=== PATIENT | male | born 1955 | race Caucasian/White ===

== ENCOUNTER 2024-08-14 13:24 | Emergency (ER) | payer MEDICARE, MEDICAID | END 2024-08-14 15:18 | disposition home or self-care (01) | LOC: MW.ED 13:24 | DX: M79.89 Other specified soft tissue disorders (principal); I10 Essential (primary) hypertension; E03.9 Hypothyroidism, unspecified; Z88.0 Allergy status to penicillin; Z79.899 Other long term (current) drug therapy; Z79.890 Hormone replacement therapy | CPT/HCPCS: 93971-26-RT; 93971-RT; 99282; 99283 ==

== ENCOUNTER 2024-11-04 20:01 | Emergency (ER) | payer MEDICARE, MEDICAID ==
[2024-11-04 20:41] LABS: BASOPHILS ABSOLUTE AUTO 0.05 K/uL (0.00-0.20); BASOPHILS PERCENT AUTO 0.8 % (0.0-1.0); EOSINOPHILS ABSOLUTE AUTO 0.11 K/uL (0.00-0.45); EOSINOPHILS PERCENT AUTO 1.8 % (0.0-6.0); IMMATURE GRAN ABSOLUTE AUTO 0.03 K/uL (0.00-0.05); IMMATURE GRAN PERCENT AUTO 0.5 % (0.0-0.4); LYMPHOCYTES ABSOLUTE AUTO 1.51 K/uL (1.00-4.80); LYMPHOCYTES PERCENT AUTO 24.0 % (24.0-44.0); MEAN PLATELET VOLUME 10.4 fL (9.4-12.4); MONOCYTES ABSOLUTE AUTO 0.55 K/uL (0.00-0.80); MONOCYTES PERCENT AUTO 8.8 % (0.0-8.0); NEUTROPHILS ABSOLUTE AUTO 4.03 K/uL (1.80-7.70); NEUTROPHILS PERCENT AUTO 64.1 % (41.0-71.0); NRBC ABSOLUTE 0.00 K/uL (0.00-0.02); NRBC PERCENT 0.0 /100WBC (0.0-0.2); PLATELET COUNT,PLT 181 K/uL (150-400); RED BLOOD CELL COUNT 4.42 M/uL (4.52-5.90); WHITE BLOOD CELL COUNT,WBC 6.28 K/uL (3.9-11.3)
[2024-11-04 20:56] LABS: A/G RATIO 1.1 (0.9-1.6); ALANINE AMINOTRANSFERASE,ALT 18.0 IU/L (14-63); ASPARTATE AMNIOTRANSFERASE,AST 25.0 IU/L (15-37); BILIRUBIN TOTAL 0.5 mg/dL (0.2-1.0); BLOOD UREA NITROGEN,BUN 99.0 mg/dL (7.0-18.0); CARBON DIOXIDE,CO2 17.2 mmol/L (21.0-32.0); CHLORIDE,CL 101.0 mmol/L (98-107); CREATININE 3.8 mg/dL (0.8-1.3); EST CRCL DRUG DOSING (CG) 20.44 mL/min; ESTIMATED GFR 16.0 mL/min (>60); GLUCOSE RANDOM 190.0 mg/dL (74-106); POTASSIUM,K 4.3 mmol/L (3.5-5.1); PROTEIN TOTAL,TP 7.4 g/dL (6.4-8.2); SODIUM,NA 133.0 mmol/L (136-148)
== END 2024-11-04 22:04 | disposition home or self-care (01) ==
LOC: MW.ED 20:01
DX: R42 Dizziness and giddiness (principal); E86.0 Dehydration; I10 Essential (primary) hypertension; E03.9 Hypothyroidism, unspecified; Z88.0 Allergy status to penicillin; Z79.890 Hormone replacement therapy; Z79.899 Other long term (current) drug therapy
CPT/HCPCS: 36415; 71045; 71045-26; 80053; 84484; 85025; 93005; 96360; 99283; 99285-25; A9270-GY; J7030